=== PATIENT | male | born 1990 | race Caucasian/White ===

== ENCOUNTER 2016-03-26 14:50 | Emergency (ER) | payer BC, OTHER ==
[~2016-03-26] VITALS: Ht 167.6 cm; Wt 82.0 kg
[~2016-03-26 14:50] MED LIST: CNC36
[2016-03-26] MEDS ORDERED: ONDANSETRON INJ 2 MG/ML 2 ML VIAL IV STA (15:36)
--- NOTE | 2016-03-26 15:56 | DIAGNOSTIC IMAGING REPORT ---
SINGLE VIEW CHEST CLINICAL HISTORY: Sepsis. FINDINGS: An AP, portable, upright chest radiograph is obtained. No prior studies are available for comparison at the time of dictation. The cardiomediastinal silhouette is unremarkable. The lungs and pleural spaces are clear. No pneumothorax is seen. The bony thorax is grossly intact. IMPRESSION: No active disease in the chest. Electronically signed by: Isidro Gallagher M.D. 03/26/2016 3:54 PM Dictated Date/Time: 03/26/2016 3:53 PM
[2016-03-26 15:58] VITALS: Ht 167.6 cm; Wt 82.0 kg
[2016-03-26 16:40] LABS: BASO % 0.1 %; BASO ABS # 0.01 K/uL (0-0.2); COMPLETE YES; EOS % 0.2 %; HEMATOCRIT 47.3 % (42-52); IG% 0.3 %; LYMPH % 9.2 %; LYMPH ABS # 0.93 K/uL (1.2-3.4); MEAN CELL VOLUME 88.2 fL (80-100); MEAN CORPUSCULAR HEMOGLOBIN 32.5 pg (25-34); MEAN CORPUSCULAR HGB CONC 36.8 g/dl (32-36); MEAN PLATELET VOLUME 10.6 fL (7.4-10.4); MONO % 3.9 %; NEUT % 86.3 %; PLATELET COUNT 227 K/uL (130-400); RED BLOOD COUNT 5.36 M/uL (4.7-6.1); WHITE BLOOD COUNT 10.07 K/uL (4.8-10.8)
[2016-03-26 16:52] LABS: PARTIAL THROMBOPLASTIN RATIO 1.1; PROTHROMBIN TIME (PATIENT) 10.8 SECONDS (9.0-12.0)
[2016-03-26] MEDS ORDERED: SODIUM CHLORIDE 0.9% 1000ML 1,000 ML IV STA (16:52)
[2016-03-26 17:08] LABS: BUN/CREATININE RATIO 18.8 (10-20); CALCIUM 9.1 mg/dl (8.5-10.1); POTASSIUM 3.7 mmol/L (3.5-5.1)
[2016-03-26 17:11] LABS: ALB/GLOB RATIO 1.3 (0.9-2)
[2016-03-26 17:53] LABS: URINE APPEARANCE CLEAR (CLEAR); URINE BILIRUBIN NEG (NEG); URINE COLOR YELLOW; URINE EPITHELIAL CELL AUTO 0-5 /lpf (0-5); URINE NITRITE NEG (NEG); URINE SPECIFIC GRAVITY 1.019 (1.000-1.030); UROBILINOGEN NEG (NEG); ZZUR CULT IF INDIC CLEAN CATCH NO
[2016-03-26 17:56] LABS: MANUAL MICROSCOPIC REQUIRED? NO; REVIEW REQ? NO
[2016-03-26 18:03] LABS: THYROID STIMULATING HORMONE 1.13 uIu/ml (0.300-4.500)
[2016-03-26 18:09] LABS: BENZODIAZEPINE, URINE NEG (NEG); COCAINE,URINE NEG (NEG); PHENCYCLIDINE, URINE NEG (NEG)
[2016-03-26 18:27] VITALS: BP 127/72; PULSE 78; TEMP 36.7; O2SAT 98
--- NOTE | 2016-03-26 18:53 | EMERGENCY ROOM VISIT NOTE ---
History Report prepared by Isabellaibmahnaz: Darin Whitten Under the Supervision of: Dr. Donovan Albert M.D. First contact with patient: 15:28 Chief Complaint: ALCOHOL OVERDOSE Stated Complaint: ETOH Nursing Triage Summary: Drinking at work and kept drinking after leaving work at 3am. Pt went to [employer] today with N and V. Pt was unable to walk and EMS was called. Pt admits to drinking 3/4 of a fifth of vodka. History of Present Illness The patient is a 25 year old male who presents to the Emergency Room with complaints of acute hypothermia that started prior to arrival. The patient was seen by [facility] prior to arrival at the ED, where his temperature was 89, as per his father. He did not spend any time outdoors last night or today except for getting into and out of the car when going to [employer] he was only wearing a T-shirt. The patient states that he woke up this morning and felt very weak and shaky. He was also cold. He does not believe he was outdoors when he was drinking last night. The patient was also feeling a little achy when he got up. He vomited upon arrival to the ED. The patient denies any fevers, headaches, chest pain, shortness of breath, abdominal pain, back pain, or nausea. He was able to urinate today. He has not had any cough or cold symptoms recently. The patient drank about 1/2 a fifth of vodka last night. He stopped drinking around [id number]. He did not have any falls or head injuries when he was drinking. The patient does not have any known medical problems. Source of History: patient Onset: prior to arrival Position: other (global) Symptom Intensity: 89 Fahrenheit Quality: other (hypothermic) Timing: other (acute) Associated Symptoms: + vomiting, + weakness, No SOB, No abdominal pain, No back pain, No chest pain, No cough, No fevers, No headache, No nausea Review of Systems See HPI for pertinent positives & negatives. A total of 10 systems reviewed and were otherwise negative. Past Medical & Surgical Medical Problems: (1) No known health problems Social History Smoking Status: Current Every Day Smoker Alcohol Use: occasionally Occupation Status: employed Current/Historical Medications No Active Prescriptions or Reported Meds Allergies Coded Allergies: Shellfish (Unverified Allergy, Mild, 03/26/16) Cephalexin (Unverified Allergy, Unknown, RASH, 03/26/16) Physical Exam Vital Signs Date Time Temp Pulse Resp B/P Pulse Ox O2 Delivery O2 Flow Rate FiO2 03/26/16 18:27 36.7 78 18 127/72 98 Room Air 03/26/16 17:16 36.3 68 12 113/68 98 Room Air 03/26/16 15:53 Room Air 03/26/16 15:50 34.2 03/26/16 15:09 58 03/26/16 14:59 56 15 126/79 100 Room Air Physical Exam Constitutional: Vital signs reviewed. Eyes: Pupils are equal round reactive to light. Conjunctiva are noninjected. ENT: Pharynx is clear without erythema or exudate. Mucous membranes are dry. Neck supple without meningeal signs. Respiratory: Clear to auscultation bilaterally. Breath sounds are equal bilaterally. Cardiovascular: Regular rate and rhythm. No rubs or gallops. GI: Soft, nondistended and nontender. Bowel sounds are present. Musculoskeletal: His skin is cool and pale. Integumentary: As above. No rashes or signs of cellulitis. Neurological: The patient is awake and alert. No focal deficits. Psychiatric: Slightly anxious appearing. Medical Decision & Procedures ER Provider Diagnostic Interpretation: X-ray results as stated below per interpretation by me and the radiologist: SINGLE VIEW CHEST CLINICAL HISTORY: Sepsis. FINDINGS: An AP, portable, upright chest radiograph is obtained. No prior studies are available for comparison at the time of dictation. The cardiomediastinal silhouette is unremarkable. The lungs and pleural spaces are clear. No pneumothorax is seen. The bony thorax is grossly intact. IMPRESSION: No active disease in the chest. Electronically signed by: Isidro Gallagher M.D. 03/26/2016 3:54 PM Dictated Date/Time: 03/26/2016 3:53 PM Laboratory Results 03/26/16 16:10 Red Blood Count 5.36, Mean Corpuscular Volume 88.2, Mean Corpuscular Hemoglobin 32.5, Mean Corpuscular Hemoglobin Concent 36.8, Mean Platelet Volume 10.6, Neutrophils (%) (Auto) 86.3, Lymphocytes (%) (Auto) 9.2, Monocytes (%) (Auto) 3.9, Eosinophils (%) (Auto) 0.2, Basophils (%) (Auto) 0.1, Neutrophils # (Auto) 8.69, Lymphocytes # (Auto) 0.93, Monocytes # (Auto) 0.39, Eosinophils # (Auto) 0.02, Basophils # (Auto) 0.01 03/26/16 16:10 Test 03/26/16 00:00 03/26/16 16:10 03/26/16 17:33 Urine Color YELLOW Urine Appearance CLEAR (CLEAR) Urine pH 5.0 (4.5-7.5) Urine Specific Elaine 1.019 (1.000-1.030) Urine Protein NEG (NEG) Urine Glucose (UA) NEG (NEG) Urine Ketones 2+ (NEG) Urine Occult Blood NEG (NEG) Urine Nitrite NEG (NEG) Urine Bilirubin NEG (NEG) Urine Urobilinogen NEG (NEG) Urine Leukocyte Esterase NEG (NEG) Urine WBC (Auto) 0 /hpf (0-5) Urine RBC (Auto) 0-4 /hpf (0-4) Urine Hyaline Casts (Auto) 0 /lpf (0-5) Urine Epithelial Cells (Auto) 0-5 /lpf (0-5) Urine Bacteria (Auto) NEG (NEG) Urine Opiates Screen NEG (NEG) Urine Methadone, Qualitative NEG (NEG) Urine Barbiturates NEG (NEG) Urine Phencyclidine (PCP) Level NEG (NEG) Ur Amphetamine/Methamphetamine NEG (NEG) MDMA (Ecstasy) Screen NEG (NEG) Urine Benzodiazepines Screen NEG (NEG) Urine Cocaine Metabolite NEG (NEG) Urine Marijuana (THC) POS (NEG) White Blood Count 10.07 K/uL (4.8-10.8) Red Blood Count 5.36 M/uL (4.7-6.1) Hemoglobin 17.4 g/dL (14.0-18.0) Hematocrit 47.3 % (42-52) Mean Corpuscular Volume 88.2 fL (80-100) Mean Corpuscular Hemoglobin 32.5 pg (25-34) Mean Corpuscular Hemoglobin Concent 36.8 g/dl (32-36) Platelet Count 227 K/uL (130-400) Mean Platelet Volume 10.6 fL (7.4-10.4) Neutrophils (%) (Auto) 86.3 % Lymphocytes (%) (Auto) 9.2 % Monocytes (%) (Auto) 3.9 % Eosinophils (%) (Auto) 0.2 % Basophils (%) (Auto) 0.1 % Neutrophils # (Auto) 8.69 K/uL (1.4-6.5) Lymphocytes # (Auto) 0.93 K/uL (1.2-3.4) Monocytes # (Auto) 0.39 K/uL (0.11-0.59) Eosinophils # (Auto) 0.02 K/uL (0-0.5) Basophils # (Auto) 0.01 K/uL (0-0.2) RDW Standard Deviation 40.5 fL (36.4-46.3) RDW Coefficient of Variation 12.6 % (11.5-14.5) Immature Granulocyte % (Auto) 0.3 % Immature Granulocyte # (Auto) 0.03 K/uL (0.00-0.02) Prothrombin Time 10.8 SECONDS (9.0-12.0) Prothromb Time International Ratio 1.0 (0.9-1.1) Activated Partial Thromboplast Time 28.2 SECONDS (21.0-31.0) Partial Thromboplastin Ratio 1.1 Anion Gap 20.0 mmol/L (3-11) Est Creatinine Clear Calc Drug Dose 115.5 ml/min Estimated GFR () 122.4 Estimated GFR (Non- 105.6 BUN/Creatinine Ratio 18.8 (10-20) Calcium Level 9.1 mg/dl (8.5-10.1) Total Bilirubin 0.4 mg/dl (0.2-1) Aspartate Amino Transf (AST/SGOT) 31 U/L (15-37) Alanine Aminotransferase (ALT/SGPT) 26 U/L (12-78) Alkaline Phosphatase 76 U/L (45-117) Total Creatine Kinase 336 U/L (39-308) Total Protein 8.6 gm/dl (6.4-8.2) Albumin 4.9 gm/dl (3.4-5.0) Globulin 3.7 gm/dl (2.5-4.0) Albumin/Globulin Ratio 1.3 (0.9-2) Thyroid Stimulating Hormone (TSH) 1.130 uIu/ml (0.300-4.500) Free Thyroxine 1.30 ng/dl (0.80-1.60) Ethyl Alcohol mg/dL 39.0 mg/dl (0-3) Bedside Lactic Acid Venous 4.49 mmol/L (0.90-1.70) Laboratory results as reviewed by me. Medications Administered Medications (Trade) Dose Ordered Sig/Katt Route Start Time Stop Time Status Last Admin Dose Admin Ondansetron HCl 4 mg 4 mg NOW STAT IV 03/26/16 15:36 03/26/16 15:39 DC 03/26/16 15:56 4 MG Sodium Chloride (Nss 1000ml) 1,000 ml @ 999 mls/hr Q1H1M STAT IV 03/26/16 16:52 03/26/16 17:52 DC 03/26/16 17:19 999 MLS/HR ED Course 1528: The patient was evaluated in room B7. A complete history and physical exam was performed. 1536: Zofran 4 mg IV. 1652: NSS 1000 ml @ 999 mls/hr. 1724: The patient says that he went from home to [employer] just wearing a T- shirt without a jacket. He states that he was cold prior to going outside and that he was only outside for a brief amount of time. His temperature was 36.3. He is feeling fine now and has been walking back and forth to the bathroom without problems. 1844: Reassess patient. Reviewed test results with the patient and his mother. He has no symptoms at this time. He does state that he was working out significantly yesterday and doing squats which she hasn't done and a long time. This likely accounts for his elevated lactic acid level. He wanted to exercise today but I advised him to take it easy and follow closely with his doctor. He is also to avoid alcohol. Reviewed discharge instructions with the patient. Medical Decision This is a 25-year-old male who presents with weakness and hypothermia. Differential diagnosis includes anemia, dehydration, alcohol intoxication, metabolic derangement, hyperthyroidism, rhabdomyolysis, acute renal failure. I did perform a limited focused review of portions of the patient's old chart on the electronic medical record. The patient has had no recent pertinent visits to this hospital. I did evaluate the patient as noted above. The patient is presenting with generalized weakness since he woke up at noon today. He was drinking heavily the night before. He denies any fever or recent illness. He was working out during the day and felt fine. IV access was established. The patient was placed on a continuous knocker out. He is hypothermic and was placed on a Deonna hugger. He was given normal saline IV. He was given Zofran for his nausea. I did order and personally review the patient's chest x-ray as described above. There is no evidence of pneumonia. Urinalysis was negative for infection. I did order and review the patient's blood work as noted in the electronic medical record. His alcohol level was 39 which likely means that when he woke up at noon today was 139. Renal function is normal. His white blood cell count is not elevated. CPK is minimally elevated. TFTs are normal. Lactic acid is elevated but the patient does not appear septic. He did state that he was working out heavily during the day yesterday and did squats which may account for his elevated lactic acid level. I did reassess the patient multiple times. I did discuss the test results with the patient and his parents. He is feeling much better at this time. He was walking around the room. He is not longer vomiting he even did a squats in the room and wanted to go exercise later today. At this time I did feel he was safe for discharge. I did recommend close follow up with his family physician for further evaluation. He was advised to avoid alcohol and heavy exercise. He was discharged with his parents in good condition. Impression Primary Impression: Hypothermia, initial encounter Additional Impression: Alcohol use Scribe Attestation The scribe's documentation has been prepared under my direct and personally reviewed by me in its entirety. I confirm that the note above accurately reflects all work, treatment, procedures, and medical decision making performed by me. Departure Information Dispostion Home / Self-Care Prescriptions No Active Prescriptions or Reported Meds Referrals No Doctor, Assigned (PCP) Forms HOME CARE DOCUMENTATION FORM, IMPORTANT VISIT INFORMATION Patient Instructions A Signature Page, My [facility] Additional Instructions You have been examined and treated today on an emergency basis only. This is not a substitute for, or an effort to provide, complete comprehensive medical care. It is impossible to recognize and treat all injuries or illnesses in a single emergency department visit. It is therefore important that you follow up closely with your physician. Call as soon as possible for an appointment. Return for worsening symptoms or if you develop fever, chest pain, abdominal pain, headache, rash or any other concerning symptoms. Problem Qualifiers
== END 2016-03-26 18:55 | disposition home or self-care (01) ==
LOC: EDBD 14:50 → C.EDB 14:52
DX: T68.XXXA Hypothermia, initial encounter (principal); F17.210 Nicotine dependence, cigarettes, uncomplicated; X31.XXXA Exposure to excessive natural cold, initial encounter; F10.10 Alcohol abuse, uncomplicated

== ENCOUNTER → 2017-02-18 | Outpatient (CLI) | payer OTHER | END | disposition home or self-care (01) | LOC: C.LAB 02:58 | DX: Z02.83 Encounter for blood-alcohol and blood-drug test (principal) ==